=== PATIENT | male | born 1960 | race American Indian/Alaskan Native ===

== ENCOUNTER 2016-05-18 19:41 | Inpatient (IN) | payer OTHER ==
--- NOTE | 2016-05-18 20:45 | Cat Scan Report ---
FINAL REPORT EXAM: CT HEAD/BRAIN WO CON HISTORY: syncope, headache TECHNIQUE: CT imaging acquired through the head without intravenous contrast. Transaxial reformations are provided. PRIORS: 01/13/2015 FINDINGS: The ventricles, cisterns and sulci are normal. No intraparenchymal or extra-axial mass, hemorrhage, or mass effect. Fish and white-matter differentiation is normal. Normal spherical shape of the globes. Paranasal sinuses and mastoid air cells are clear. No skull or facial fracture visualized. IMPRESSION: No acute intracranial abnormality.
[2016-05-18 20:52] LABS: Basophils % (Auto) 0.8 % (0.0-1.8); Hematocrit 40.5 % (35.5-45.6); Hemoglobin 13.4 gm/dl (11.8-15.2); Mean Corpuscular HGB Conc 33 % (32-34); Mean Corpuscular Hemoglobin 29 pg (28-32); Mean Corpuscular Volume 89 fl (84-94); Platelet Count 200 K/mm3 (140-440); Red Blood Count 4.57 M/mm3 (3.65-5.03); Red Cell Distribution Width 13.8 % (13.2-15.2); White Blood Count 3.9 K/mm3 (4.5-11.0)
[2016-05-18 21:03] LABS: Anion Gap 16 mmol/L; Blood Urea Nitrogen 11 mg/dL (9-20); Calcium 9.2 mg/dL (8.4-10.2); Carbon Dioxide 24 mmol/L (22-30); Chloride 103.6 mmol/L (98-107); Glucose 96 mg/dL (75-100); Potassium 3.8 mmol/L (3.6-5.0); Sodium 140 mmol/L (137-145)
[2016-05-18] MEDS ORDERED: MORPHINE IV ONE (22:28)
[2016-05-18] MEDS ORDERED: ZOFRAN IV ONE (22:28)
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
[2016-05-18] MEDS ORDERED: ASPIRIN PO ONE (22:46)
[2016-05-18] MEDS ORDERED: MILK OF MAGNESIA PO PRN (23:23)
[2016-05-18] MEDS ORDERED: TYLENOL PO PRN (23:23)
[2016-05-18] MEDS ORDERED: DULCOLAX PR PRN (23:23)
[2016-05-18] MEDS ORDERED: ZOFRAN IV PRN (23:23)
--- NOTE | 2016-05-18 23:23 | History and Physical Report ---
History of Present Illness Date of examination: 05/18/16 History of present illness: 55-year-old man with a history of HIV, unknown CD4 count, hypertension, seizure , he has a history of pulmonary emboli comes emergency room with complaints of feeling dizzy after which he passed out, he thinks he passed out for approximately 3 minutes. Also complaining of chest pain in the left chest which has been intermittent but has now become constant, described as a sharp pain, intensity, 5/10, no radiation any cannot identify exacerbating or relieving factor. Admits to nausea, shortness of breath, no diaphoresis or palpitation. He had a stress test 2 years ago which was negative Patient denies cough, abdominal pain, hematochezia, dysuria, frequency, focal weakness, dysarthria, fever chills, polydipsia polyuria, hot or cold intolerance , easy bruisability, or rash or bleeding from mucosal membrane, rhinorrhea, epistaxis, earache, tinnitus, blurry vision, eye discharge, anxiety, depression. Other review of systems negative PAST SURGICAL HISTORY: Negative SOCIAL HISTORY: Denies alcohol, tobacco, drugs FAMILY HISTORY: Hypertension Medications and Allergies Allergies Allergy/AdvReac Type Severity Reaction Status Date / Time No Known Allergies Allergy Verified 05/18/16 20:01 Home Medications Medication Instructions Recorded Confirmed Last Taken Type Atazanavir Sulfate [Reyataz] 300 mg PO QDAY 09/11/13 05/18/16 01/25/15 History Emtricitabin/Tenofovir [TRUVADA 1 tab PO DAILY 09/11/13 05/18/16 01/25/15 History 200-300 mg] Lisinopril [Zestril TAB] 40 mg PO QDAY 09/11/13 05/18/16 01/25/15 History Ritonavir [Norvir] 100 mg PO QDAY 09/11/13 05/18/16 01/25/15 History amLODIPine [Norvasc] 5 mg PO QDAY #30 tablet 01/16/15 05/18/16 01/25/15 Rx Azithromycin [Zithromax Z-ADRIAN] 1 mg PO DAILY #6 tab 01/25/15 05/18/16 Unknown Rx Diazepam Tab [Valium] 5 mg PO Q8HR PRN #10 tablet 01/25/15 05/18/16 Unknown Rx Rivaroxaban [Xarelto] 10 mg PO QDAY 05/18/16 05/18/16 Unknown History Exam - Physical Exam Narrative exam: Gen. appearance: Patient lying in bed, no apparent distress HEENT: Normocephalic, atraumatic, pupils equally round and reactive to light, extraocular movement intact, and no sclericterus,. No JVD or thyromegaly or nodule,neck supple, no carotid bruit ,mucous membranes moist, no exudate or erythema Heart: S1, S2, regular rate and rhythm Lungs: Clear to auscultation bilaterally, breathing comfortable Abdomen: Positive bowel sounds, nontender, nondistended, no organomegaly Extremity: No edema, cyanosis, clubbing Skin: No rash, nodules, warm, dry Neuro: Oriented 3, cranial nerves II-12 intact, speech is fluent, motor and sensory intact - Constitutional Vitals: Temp Pulse Resp BP Pulse Ox 98.1 F 75 18 160/115 100 05/18/16 22:32 05/18/16 22:32 05/18/16 22:32 05/18/16 22:32 05/18/16 22:32 Results - Labs CBC & Chem 7: 05/18/16 20:27 05/18/16 20:27 Labs: Abnormal lab results 05/18/16 Range/Units 20:27 WBC 3.9 L (4.5-11.0) K/mm3 Lymph % (Auto) 50.3 H (13.4-35.0) % [place] % (Auto) 8.6 H (0.0-7.3) % Seg Neutrophils % 39.3 L (40.0-70.0) % Seg Neutrophils # 1.5 L (1.8-7.7) K/mm3 - Imaging and Cardiology EKG: image reviewed Chest x-ray: image reviewed CT Scan - head: report reviewed Assessment and Plan Syncope Hypertension HIV Seizure Admit to medicine Check cardiac enzymes, lipid profile, echo Consult cardiology continue appropriate outpatient medications and start DVT prophylaxis
[2016-05-19 00:09] LABS: Creatine Kinase MB 2.1 ng/mL (0.0-4.0)
[2016-05-19] MEDS ORDERED: APRESOLINE ONE (01:01)
[2016-05-19] MEDS: APRESOLINE IV PRN (01:43)
[2016-05-19] MEDS ORDERED: APRESOLINE IV SCH (02:00)
[2016-05-19] MEDS: PERCOCET 5/325 PO PRN ×3 (02:35→19:51)
[2016-05-19 02:59] LABS: Basophils % (Auto) 0.8 % (0.0-1.8); Eosinophils % (Auto) 1.5 % (0.0-4.3); Hematocrit 39.4 % (35.5-45.6); Hemoglobin 12.9 gm/dl (11.8-15.2); Mean Corpuscular HGB Conc 33 % (32-34); Mean Corpuscular Hemoglobin 29 pg (28-32); Mean Corpuscular Volume 88 fl (84-94); Platelet Count 200 K/mm3 (140-440); Red Blood Count 4.46 M/mm3 (3.65-5.03); Red Cell Distribution Width 13.6 % (13.2-15.2); White Blood Count 3.4 K/mm3 (4.5-11.0)
[2016-05-19 03:15] LABS: Anion Gap 15 mmol/L; BUN/Creatinine Ratio 16.66; Blood Urea Nitrogen 15 mg/dL (9-20); Carbon Dioxide 23 mmol/L (22-30); Chloride 105.8 mmol/L (98-107); Glucose 95 mg/dL (75-100); Potassium 3.7 mmol/L (3.6-5.0); Sodium 140 mmol/L (137-145)
[2016-05-19 07:43] LABS: Creatine Kinase MB 1.9 ng/mL (0.0-4.0)
[2016-05-19 07:45] LABS: Creatine Kinase 172 units/L (55-170)
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
[2016-05-19] MEDS ORDERED: LOVENOX SUB-Q SCH ×2 (10:00)
[2016-05-19] MEDS ORDERED: FLUARIX QUAD 2016-2017(36 MOS+) IM ONE (12:00)
--- NOTE | 2016-05-19 14:34 | Admit Criteria Form ---
Admission Criteria Documentation: SYNCOPE Clinical Indications for Admission to Inpatient Care ( Place 'X' for any and all applicable criteria): Admission is indicated for syncope and ANY ONE of the following (1)(2)(3)(4)(5) (6)(7) : [X]I. Inpatient admission required rather than observation care (Also use Syncope: Observation Care Criteria as appropriate) because of ANY ONE of the following: [ ]a) Hemodynamic instability that is severe or persistent [ ]b) Cardiac arrhythmias of immediate concern identified or strongly suspected (eg, needs electrophysiologic study) [ ]c) Acute coronary syndrome identified (Also use Myocardial Infarction or Angina Criteria form ) [ ]d) Structural cardiac disorder (eg, aortic stenosis) suspected as cause that requires immediate correction [ ]e) Respiratory symptoms (eg, dyspnea, tachypnea) that are severe or persistent [ ]f) Neurologic signs or symptoms that are severe or persistent ( eg, stroke, seizures, altered mental status) [ ]g) Severe electrolyte abnormalities requiring inpatient care [ ]h) Supplemental oxygen or respiratory treatment for over 24 hrs that are performable only in acute inpatient setting [ ]i) IV fluid to replace significant ongoing (eg, for over 24 hrs ) losses (>3 L/m2 per day) [ ]j) Continuous intravenous infusion of anticoagulation, platelet inhibitor, vasoactive, or antiarrhythmic medication(15)(16) [ ]k) Pulmonary artery catheter monitoring [ ]l) Temporary pacemaker placement(17) [ ]m) Emergent cardioversion(18) [X]n) Other conditions, treatment or monitoring requiring inpatient admission [ ]II. Suspicion of imminently dangerous cause (eg, rare causes like pericardial tamponade, pulmonary embolism) [ ]III. Syncope causing severe injury requiring hospitalization Extended stay beyond goal length of stay may be needed for(28) [ ]a) Dangerous arrhythmia(15)(23)(27)(29) [ ]b) Myocardial ischemia [ ]c) Seizure disorder [ ]d) Syncope-related injuries The original gdgt content created by [employer] has been revised. The portions of the content which have been revised are identified through the use of italic text or in bold, and [employer] has neither reviewed nor approved the modified material. All other unmodified content is copyright [employer] [facility] [employer]. Please see references footnoted in the original [facility] edition 2016 Admission Criteria Met: Yes
--- NOTE | 2016-05-19 17:16 | Progress Note ---
Assessment and Plan Assessment and plan: --Syncope/probably vasovagal syncope Follow echocardiogram, check carotid Doppler Ambulate as tolerated, orthostats Fall precautions Cardiology was consulted by the admitting physician we'll follow recommendations --History of HIV Continue current medications --History of PE on chronic anticoagulation cont Xeralto --Hypertension well-controlled Continue current antihypertensives and when necessary medications --DVT prophylaxis patient is already on Xarelto --DC planning per case management If syncope workup is negative and if patient is stable can be discharged home tomorrow History Interval history: 55-year-old male patient was admitted with history of syncopal episode Syncope workup is in progress Patient did not have any new episodes of syncope or near syncope since admission Patient denies any chest pain or shortness of breath Denies headache dizziness Alert awake oriented 3 not in acute distress Hospitalist Physical - Constitutional Vitals: Temp Pulse Resp BP Pulse Ox 98 F 76 16 130/71 96 05/19/16 15:55 05/19/16 15:55 05/19/16 15:55 05/19/16 15:55 05/19/16 15:55 General appearance: Present: no acute distress, well-nourished - EENT Eyes: Present: PERRL, EOM intact - Neck Neck: Present: supple, normal ROM - Respiratory Respiratory effort: normal Respiratory: negative: rales, rhonchi, wheezing - Cardiovascular Rhythm: regular Heart Sounds: Present: S1 & S2 - Extremities Extremities: no ischemia, pulses intact, pulses symmetrical Peripheral Pulses: within normal limits - Abdominal General gastrointestinal: soft, non-tender, non-distended, normal bowel sounds - Integumentary Integumentary: Present: clear, warm - Psychiatric Psychiatric: appropriate mood/affect, cooperative - Neurologic Neurologic: CNII-XII intact, moves all extremities Results - Labs CBC & Chem 7: 05/19/16 02:38 05/19/16 02:38 Labs: Laboratory Last Values WBC 3.4 K/mm3 (4.5-11.0) L 05/19/16 02:38 RBC 4.46 M/mm3 (3.65-5.03) 05/19/16 02:38 Hgb 12.9 gm/dl (11.8-15.2) 05/19/16 02:38 Hct 39.4 % (35.5-45.6) 05/19/16 02:38 MCV 88 fl (84-94) 05/19/16 02:38 MCH 29 pg (28-32) 05/19/16 02:38 MCHC 33 % (32-34) 05/19/16 02:38 RDW 13.6 % (13.2-15.2) 05/19/16 02:38 Plt Count 200 K/mm3 (140-440) 05/19/16 02:38 Lymph % (Auto) 51.6 % (13.4-35.0) H 05/19/16 02:38 [place] % (Auto) 8.4 % (0.0-7.3) H 05/19/16 02:38 Eos % (Auto) 1.5 % (0.0-4.3) 05/19/16 02:38 Baso % (Auto) 0.8 % (0.0-1.8) 05/19/16 02:38 Lymph # 1.8 K/mm3 (1.2-5.4) 05/19/16 02:38 [place] # 0.3 K/mm3 (0.0-0.8) 05/19/16 02:38 Eos # 0.1 K/mm3 (0.0-0.4) 05/19/16 02:38 Baso # 0.0 K/mm3 (0.0-0.1) 05/19/16 02:38 Seg Neutrophils % 37.7 % (40.0-70.0) L 05/19/16 02:38 Seg Neutrophils # 1.3 K/mm3 (1.8-7.7) L 05/19/16 02:38 D-Dimer < 135.00 ng/mlDDU (0-234) 05/18/16 20:27 Sodium 140 mmol/L (137-145) 05/19/16 02:38 Potassium 3.7 mmol/L (3.6-5.0) 05/19/16 02:38 Chloride 105.8 mmol/L (98-107) 05/19/16 02:38 Carbon Dioxide 23 mmol/L (22-30) 05/19/16 02:38 Anion Gap 15 mmol/L 05/19/16 02:38 BUN 15 mg/dL (9-20) 05/19/16 02:38 Creatinine 0.9 mg/dL (0.8-1.5) 05/19/16 02:38 Estimated GFR > 60 ml/min 05/19/16 02:38 BUN/Creatinine Ratio 16.66 % 05/19/16 02:38 Glucose 95 mg/dL (75-100) 05/19/16 02:38 Calcium 9.0 mg/dL (8.4-10.2) 05/19/16 02:38 Total Creatine Kinase 172 units/L (55-170) H 05/19/16 05:48 CK-MB (CK-2) 1.9 ng/mL (0.0-4.0) 05/19/16 05:48 CK-MB (CK-2) Rel Index 1.1 (0-4) 05/19/16 05:48 Troponin T < 0.010 ng/mL (0.00-0.029) 05/19/16 05:48
[2016-05-19] MEDS ORDERED: VALIUM PO PRN (17:51)
[2016-05-20] MEDS: ZESTRIL PO SCH (11:56)
[2016-05-20] MEDS: NORVASC PO SCH (11:56)
[2016-05-20] MEDS: XARELTO PO SCH (11:57)
[2016-05-20] MEDS ORDERED: FLUARIX QUAD 2016-2017(36 MOS+) IM ONE (12:00)
--- NOTE | 2016-05-20 14:51 | Progress Note ---
Hospitalist Physical - Constitutional Vitals: Temp Pulse Resp BP Pulse Ox 97.8 F 73 14 140/94 96 05/20/16 11:41 05/20/16 11:41 05/20/16 11:41 05/20/16 11:41 05/20/16 11:41 General appearance: Present: no acute distress, well-nourished Results - Labs CBC & Chem 7: 05/19/16 02:38 05/19/16 02:38 Labs: Laboratory Last Values WBC 3.4 K/mm3 (4.5-11.0) L 05/19/16 02:38 RBC 4.46 M/mm3 (3.65-5.03) 05/19/16 02:38 Hgb 12.9 gm/dl (11.8-15.2) 05/19/16 02:38 Hct 39.4 % (35.5-45.6) 05/19/16 02:38 MCV 88 fl (84-94) 05/19/16 02:38 MCH 29 pg (28-32) 05/19/16 02:38 MCHC 33 % (32-34) 05/19/16 02:38 RDW 13.6 % (13.2-15.2) 05/19/16 02:38 Plt Count 200 K/mm3 (140-440) 05/19/16 02:38 Lymph % (Auto) 51.6 % (13.4-35.0) H 05/19/16 02:38 [place] % (Auto) 8.4 % (0.0-7.3) H 05/19/16 02:38 Eos % (Auto) 1.5 % (0.0-4.3) 05/19/16 02:38 Baso % (Auto) 0.8 % (0.0-1.8) 05/19/16 02:38 Lymph # 1.8 K/mm3 (1.2-5.4) 05/19/16 02:38 [place] # 0.3 K/mm3 (0.0-0.8) 05/19/16 02:38 Eos # 0.1 K/mm3 (0.0-0.4) 05/19/16 02:38 Baso # 0.0 K/mm3 (0.0-0.1) 05/19/16 02:38 Seg Neutrophils % 37.7 % (40.0-70.0) L 05/19/16 02:38 Seg Neutrophils # 1.3 K/mm3 (1.8-7.7) L 05/19/16 02:38 D-Dimer < 135.00 ng/mlDDU (0-234) 05/18/16 20:27 Sodium 140 mmol/L (137-145) 05/19/16 02:38 Potassium 3.7 mmol/L (3.6-5.0) 05/19/16 02:38 Chloride 105.8 mmol/L (98-107) 05/19/16 02:38 Carbon Dioxide 23 mmol/L (22-30) 05/19/16 02:38 Anion Gap 15 mmol/L 05/19/16 02:38 BUN 15 mg/dL (9-20) 05/19/16 02:38 Creatinine 0.9 mg/dL (0.8-1.5) 05/19/16 02:38 Estimated GFR > 60 ml/min 05/19/16 02:38 BUN/Creatinine Ratio 16.66 % 05/19/16 02:38 Glucose 95 mg/dL (75-100) 05/19/16 02:38 Calcium 9.0 mg/dL (8.4-10.2) 05/19/16 02:38 Total Creatine Kinase 172 units/L (55-170) H 05/19/16 05:48 CK-MB (CK-2) 1.9 ng/mL (0.0-4.0) 05/19/16 05:48 CK-MB (CK-2) Rel Index 1.1 (0-4) 05/19/16 05:48 Troponin T < 0.010 ng/mL (0.00-0.029) 05/19/16 05:48
[2016-05-20] MEDS: APRESOLINE IV PRN (21:09)
--- NOTE | 2016-05-21 09:31 | Discharge Summary ---
Providers - Providers Date of Admission: 05/18/16 23:23 Date of discharge: 05/21/16 Attending physician: ROMAIN DAN Primary care physician: [employer] Hospitalization Condition: Fair Disposition: DISCHARGED TO HOME OR SELFCARE Core Measure Documentation - Palliative Care Palliative Care/ Comfort Measures: Not Applicable - Core Measures Any of the following diagnoses?: none Exam - Constitutional Vitals: Temp Pulse Resp BP Pulse Ox 98.2 F 92 H 18 153/90 97 05/21/16 08:15 05/21/16 08:15 05/21/16 08:15 05/21/16 08:15 05/21/16 08:15 General appearance: Present: no acute distress, well-nourished Plan Activity: no restrictions, fall precautions Diet: other (cardiac diet) Additional Instructions: If you have dizziness or syncope ,contact MD or go to ED Follow up with: PRIMARY CARE,MD [Primary Care Provider] - 3-5 Days Prescriptions: oxyCODONE /ACETAMINOPHEN [Percocet 5/325 mg] 1 tab PO BID #10 tablet
[2016-05-21] MEDS: NORVASC PO SCH (09:52)
[2016-05-21] MEDS: ZESTRIL PO SCH (09:53)
[2016-05-21] MEDS: XARELTO PO SCH (09:53)
[2016-05-21 15:10] VITALS: BP 130/86
== END 2016-05-21 14:55 | disposition home or self-care (01) | DRG 312 ==
LOC: ED 19:41 → EEVIPCON 23:23 → 4A 23:23
PROVIDERS: ADMIT Internal Medicine; ATTEND Internal Medicine
PROC: 3E0234Z Introduction of Serum, Toxoid and Vaccine into Muscle, Percutaneous Approach (ICD-10-PCS; principal; 2016-05-19)
DX: R55 Syncope and collapse (principal); I10 Essential (primary) hypertension; R56.9 Unspecified convulsions; R07.9 Chest pain, unspecified; Z86.711 Personal history of pulmonary embolism; Z79.01 Long term (current) use of anticoagulants; Z23 Encounter for immunization; Z82.49 Family history of ischemic heart disease and other diseases of the circulatory system
CPT/HCPCS: 36415; 70450; 71010; 80048; 82550; 82553; 84484; 85025; 85379; 90686; 93005; 93010; 93306; 93880; 96374; 96375; J0360; J1650; J2270; J2405